=== PATIENT | male | born 1945 ===

== ENCOUNTER 2016-11-15 07:44 | Outpatient (CLI) | payer MEDICARE ==
[2016-11-15 09:27] LABS: #Basophils 0.1 thou/uL (0.0-0.2); #Eosinphils 0.9 thou/uL (0.0-0.7); #Lymphocytes 2.2 thou/uL (1.20-3.40); #Monocytes 0.8 thou/uL (0.11-0.59); %Basophils 0.9 % (0.0-1.0); %Eosinophils 8.1 % (0.0-10.0); %Lymphocytes 20.1 % (21.0-51.0); %Monocytes 6.8 % (0.0-10.0); Hematocrit 37.4 % (42.0-52.0); Red Blood Cell (RBC) Count 3.85 mill/uL (4.70-6.10)
[2016-11-15 10:08] LABS: Anion Gap 17 mmol/L (10-20); BUN (Urea Nitrogen) 41 mg/dL (8.4-25.7); Calc. Creatinine Clearance 0 mL/min (70-130); Calcium 9.1 mg/dL (7.8-10.44); Carbon Dioxide 27 mmol/L (23-31); Chloride 122 mmol/L (98-107); Estimated GFR-MDRD 85
== END 2016-11-15 07:45 | disposition home or self-care (01) ==
LOC: NAV LABSP 07:44
PROVIDERS: ATTEND Family Medicine
DX: G20 Parkinson's disease (principal); I10 Essential (primary) hypertension
CPT/HCPCS: 36415; 80048; 85025